=== PATIENT | female | born 1990 | race Caucasian/White ===

== ENCOUNTER → 2018-05-04 | Outpatient (CLI) | payer OTHER ==
[~2018-05-04] MED LIST: LEVO1IUD2 IY; LORA-629 PO
--- NOTE | 2018-05-05 14:14 | RADIOLOGY IMAGING REPORT ---
FACILITY: [facility] [place] PATIENT NAME: CARMITA SHORT : [id number] MR: [id number] V: [id number] EXAM DATE: ORDERING PHYSICIAN: TEDDY CUELLAR TECHNOLOGIST: Radha Boyd RT(R)(CT) PROCEDURE:US LEFT BREAST COMPLETE COMPARISON:None. INDICATIONS:L breast pain, itching, rash FINDINGS: The entire Left breast was imaged sonographically. There are several minimally prominent ducts in the retroareolar portion of the Left breast. No solid or cystic masses are seen. Clinical follow-up recommended for patient's flakey skin with pain, itching and rash on the Left breast. DIAGNOSTIC CATEGORY 2--BENIGN FINDING. RECOMMENDATIONS: CLINICAL EVALUATION. IMPRESSION: BIRADS 2: Benign finding. There are minimally prominent ducts in the Left retroareolar breast however no focal mass is identified. Clinical follow-up recommended for patient's flakey skin with pain, itching and rash on the Left breast. Dictated by: Sydnie Montgomery M.D. on 05/05/2018 at 9:11 Transcribed by: [email or web address] on 05/05/2018 at 10:02 Approved by: Sydnie Montgomery M.D. on 05/05/2018 at 14:13 [facility]
== END ==
LOC: MAMO 01:28
PROVIDERS: ATTEND Nurse Practitioner Primary Care
DX: R21 Rash and other nonspecific skin eruption (principal); N64.4 Mastodynia; L29.8 Other pruritus